=== PATIENT | female | born 1955 | race African-American/Black ===

== ENCOUNTER 2017-10-26 19:48 | Emergency (ER) | payer OTHER ==
[~2017-10-26] VITALS: Ht 157.5 cm; Wt 86.4 kg
[~2017-10-26 19:48] MED LIST: ASPI81TA39 PO; ATOR10TA84 PO; CARV6 PO; DIGO125T2 PO; FURO40TA5 PO
[2017-10-26] MEDS ORDERED: ERGO500014 PO (19:59)
[2017-10-26] MEDS ORDERED: ATOR20TA65 PO (19:59)
[2017-10-26] MEDS ORDERED: CARV25TA32 PO (19:59)
[2017-10-26] MEDS ORDERED: SACU1TAB4 PO (19:59)
[2017-10-26] MEDS ORDERED: HYDROCODONE/ACETAMINOPHEN 5-325 MG TABLET PO ONE (22:15)
[2017-10-26 23:09] VITALS: BP 132/80
== END 2017-10-26 23:10 | disposition home or self-care (01) ==
LOC: EMS 19:50
DX: J40 Bronchitis, not specified as acute or chronic (principal); I25.10 Atherosclerotic heart disease of native coronary artery without angina pectoris; I11.0 Hypertensive heart disease with heart failure; I50.9 Heart failure, unspecified; F17.210 Nicotine dependence, cigarettes, uncomplicated; Z95.0 Presence of cardiac pacemaker; Z88.0 Allergy status to penicillin; Z79.82 Long term (current) use of aspirin
CPT/HCPCS: 93005; 99284

== ENCOUNTER 2019-08-28 06:29 | Emergency (ER) | payer MEDICAID, MEDICARE, OTHER ==
[~2019-08-28] VITALS: Ht 157.5 cm; Wt 84.5 kg
[~2019-08-28 06:29] MED LIST changes: -ATOR10TA84 PO; +ATOR20TA65 PO; +CARV25TA32 PO; -CARV6 PO; +ERGO500054 PO; +SACU1TAB4 PO
[2019-08-28] MEDS ORDERED: MECLIZINE HCL 25 MG TABLET PO ONE (07:45)
[2019-08-28] MEDS ORDERED: ONDANSETRON HCL 4 MG TABLET PO ONE (07:45)
[2019-08-28] MEDS ORDERED: ACETAMINOPHEN 500 MG TABLET PO ONE (07:45)
[2019-08-28 08:27] LABS: BASOPHILS % (AUTO) 1.1 % (0.0-2.0); EOSINOPHILS % (AUTO) 2.3 % (1.0-6.0); HEMATOCRIT 35.6 % (36-46); HEMOGLOBIN 12.1 g/dL (12.0-16.0); LYMPHOCYTES # (AUTO) 1.8 K/uL (1.0-4.8); LYMPHOCYTES % (AUTO) 27.9 % (22.0-44.0); MEAN CORPUSCULAR HEMOGLOBIN 31.5 pg (26.0-34.0); MEAN CORPUSCULAR HGB CONC 33.9 G/dL (31.0-37.0); MEAN CORPUSCULAR VOLUME 93 fL (80-100); MONOCYTES # (AUTO) 0.5 K/uL (0.1-1.0); MONOCYTES % (AUTO) 7.9 % (2.0-9.0); NEUTROPHILS % (AUTO) 60.8 % (40.0-70.0); PLATELET COUNT (AUTO) 170 K/uL (150-450); RED BLOOD CELL COUNT(AUTO) 3.83 MIL/uL (4.00-5.20); RED CELL DISTRIBUTION WIDTH 12.2 % (11.5-14.5)
[2019-08-28 08:36] LABS: CALCIUM, TOTAL 8.6 mg/dL (8.8-10.5); CREATININE 1.11 mg/dL (0.60-1.30); POTASSIUM 4.4 mmol/L (3.5-5.1)
[2019-08-28 08:42] LABS: ALBUMIN 3.5 g/dL (3.4-5.0); BILIRUBIN,TOTAL 0.5 mg/dL (0.1-1.0); TOTAL PROTEIN, SERUM 7.4 g/dL (6.4-8.2)
[2019-08-28 08:48] VITALS: BP 122/61
== END 2019-08-28 09:12 | disposition home or self-care (01) ==
LOC: EMS 06:31
DX: R42 Dizziness and giddiness (principal); E78.00 Pure hypercholesterolemia, unspecified; I11.0 Hypertensive heart disease with heart failure; I50.9 Heart failure, unspecified; I25.10 Atherosclerotic heart disease of native coronary artery without angina pectoris; F17.210 Nicotine dependence, cigarettes, uncomplicated; Z90.710 Acquired absence of both cervix and uterus; Z98.890 Other specified postprocedural states; Z95.0 Presence of cardiac pacemaker; Z79.82 Long term (current) use of aspirin; Z88.0 Allergy status to penicillin
CPT/HCPCS: 36415; 80053; 84484; 85025; 93005; 99285; Q0162